=== PATIENT | female | born 1990 | race Two or more races ===

== ENCOUNTER 2021-01-18 16:05 | Emergency (ER) | payer SELFPAY ==
[~2021-01-18] VITALS: Ht 180.3 cm; Wt 118.1 kg
[2021-01-18] MEDS ORDERED: FAMOTIDINE 20 MG/2 ML VIAL IVP ONE (16:15)
[2021-01-18] MEDS ORDERED: METH4TAB2 PO (16:44)
[2021-01-18] MEDS ORDERED: DIPH25TA24 PO (16:44)
[2021-01-18] MEDS ORDERED: EPIPEN0.3 MG/0.3 IM (16:44)
[2021-01-18] MEDS ORDERED: DEXAMETHASONE SOD PHOS 20 MG/5 ML VIAL. IV ONE (16:45)
--- NOTE | 2021-01-18 16:45 | PHYS DOC ---
Past Medical History Additional Past Medical Histor: VERTIGO Past Surgical History: Cholecystectomy, Other Additional Past Surgical Histo: BACK Smoking Status: Never Smoker Alcohol Use: None General Adult EDM: Chief Complaint: ALLERGIC REACTION HPI: HPI: 30-year-old female past medical history of vertigo, migraine headaches, hypertension and obesity, presents to the ED brought in by EMS with her mother, (patient consents to his/her/their knowledge and involvement in pts' medical care), with complaints of coughing, posttussive emesis, feeling as if her throat was closing and difficulties breathing taking a deep breath, that started after accidentally eating green onions at a steak house just prior to ED arrival. States she knows she is allergic to green onions and penicillin/has been tested for allergies. Has had multiple emergency department visits for similar reactions, treated with epinephrine. Has never been hospitalized, no history of angioedema or intubation (does take lisinopril for HTN). States her last reaction was 3 to 4 years ago. Per EMS was given 1 IM epinephrine and 50 mg of IV Benadryl. Last menstrual period was November 26. Denies any alcohol, illicit drug use or cigarette use. Review of Systems: Review of Systems: Constitutional: Denies fever or chills. [] Eyes: Denies change in visual acuity. [] HENT: Denies nasal congestion or sore throat or drooling or speech changes Respiratory: Denies hemoptysis or increased work of breathing Cardiovascular: Denies chest pain or edema. [] GI: Denies abdominal pain, nausea, vomiting, bloody stools or diarrhea. [] : Denies dysuria or vaginal bleeding Musculoskeletal: Denies back pain or joint pain. [] Integument: Denies rash or diaphoresis Neurologic: Denies headache, focal weakness or sensory changes. [] Endocrine: Denies polyuria or polydipsia. [] Lymphatic: Denies swollen glands. [] Psychiatric: Denies depression or anxiety. [] Heart Score: C/O Chest Pain: No Risk Factors: Risk Factors: DM, Current or recent (<one month) smoker, HTN, HLP, family history of CAD, obesity. Risk Scores: Score 0 - 3: 2.5% MACE over next 6 weeks - Discharge Home Score 4 - 6: 20.3% MACE over next 6 weeks - Admit for Clinical Observation Score 7 - 10: 72.7% MACE over next 6 weeks - Early Invasive Strategies Current Medications: Current Medications Medications (Trade) Dose Ordered Sig/Pretty Start Time Stop Time Status Last Admin Dose Admin Famotidine (Pepcid Vial) 20 mg 1X ONCE 01/18/21 16:15 01/18/21 16:17 DC 01/18/21 16:25 20 MG Allergies: Allergies: Allergies Coded Allergies Type Severity Reaction Last Updated Verified Penicillins Allergy Unknown UNKNOWN 01/18/21 Yes Uncoded Allergies Type Severity Reaction Last Updated Verified ONIONS Allergy Unknown UNKNOWN 01/18/21 Physical Exam: PE: Constitutional: Well developed, well nourished, no acute distress, non-toxic appearance. HENT: Normocephalic, atraumatic, Mallampati 3, no oropharyngeal edema-patient is pain, no angioedema Eyes: EOMI, conjunctiva normal, no discharge. Neck: Normal range of motion, supple, Cardiovascular: S1/2 present, regular rhythm Lungs & Thorax: Speaking in full sentences, bilateral equal chest rise, no tachypnea or increased work of breathing, clear speech with no drooling, controlling airway and oral secretions Abdomen: soft, no tenderness, Skin: Warm, dry, no erythema, no rash, no urticaria Extremities: No tenderness, no cyanosis, Neurologic: Alert and oriented X 3, normal motor function, normal sensory function, no focal deficits noted. [] Psychologic: Affect normal, judgement normal, mood normal. [] Current Patient Data: Vital Signs: Vital Signs Date Time Temp Pulse Resp B/P (MAP) Pulse Ox O2 Delivery O2 Flow Rate FiO2 01/18/21 16:05 98.5 103 20 200/93 (128) 99 Room Air 98.5 EKG: EKG: [] Radiology/Procedures: Radiology/Procedures: [] Course & Med Decision Making: Course & Med Decision Making Pertinent Labs and Imaging studies reviewed. (See chart for details) Concern for acute allergic reaction treated in the field with epinephrine and Benadryl. Patient treated with dexamethasone and Pepcid emergency department. Patient with no visible urticaria or angioedema. Patient was observed in the emergency department for recurrence of symptoms. Patient remained hemodynamically stable with no allergic reaction exacerbation. Will discharge home with epinephrine, steroids and Benadryl. Will discharge home with strict ED return precautions were given for difficulties breathing, speech changes, inability could not control her secretions, head or neck swelling or rash. Encouraged urgent outpatient follow-up with PMD and Allergy and Immunology. Life-threatening processes were considered but are low suspicion at this time, given history, physical exam and ED workup. Pt was educated on all prescription medications and adverse effects. All patient's questions were answered and pt was stable at time of discharge. Life/limb-threatening differential includes but is not limited to, anaphylaxis, angioedema, shock, contrast induced allergic reaction, carcinoid syndrome, head/neck infection/sepsis, asthma exacerbation, or airway emergency. I have spoken with the patient and/or caregivers. I explained the patient's condition, diagnoses and treatment plan based on the information available to me at this time. I have answered the patient and/or caregiver's questions and addressed any concerns. The patient and/or caregivers have a good understanding of patient's diagnosis, condition and treatment plan as can be expected at this point. Vital signs have been stable. Patient's condition is stable and appropriate for discharge from the emergency department. Patient will pursue further outpatient evaluation with primary care physician or other designated or consulting physician as outlined in the discharge instructions. The patient and/or caregivers are agreeable to this plan of care and follow-up instructions have been explained in detail. The patient and/or caregivers have received these instructions in written form and have expressed an understanding of the discharge instructions. The patient and/or caregivers are aware that any significant change of condition or worsening of symptoms should prompt immediate return to this or the closest emergency department or call to 1[facility]inf[facility] Obrien Disclaimer: Micah Disclaimer: This electronic medical record was generated, in whole or in part, using a voice recognition dictation system. Departure Departure Impression: Primary Impression: Food allergy Disposition: 01 HOME / SELF CARE / HOMELESS Condition: STABLE Referrals: JIM SERNA III DO Follow-up with your primary care physician in 24 to 48 hours OR FOLLOW UP WITH FAMILY MEDICINE: [address], [address] [place] [address] Patient Instructions: Food Allergy and Anaphylaxis Additional Instructions: [facility] Call for appointment [phone] [facility] on the [address] (Address for directions and navigation systems: [address] [place] [address]) EMERGENCY DEPARTMENT GENERAL DISCHARGE INSTRUCTIONS Thank you for coming to [facility] Emergency Department (ED) today and trusting us with you care. We trust that you had a positive experience in our Emergency Department. If you wish to speak to the department management, you may call the Director at [phone]. YOUR FOLLOW UP INSTRUCTIONS ARE FOLLOWS: 1. Do you have a private Doctor? If you do not have a private doctor, please ask for a resource list of physicians or clinics that may be able to assist you with follow up care. 2. The Emergency Physicain has interpreted your x-rays. The X-Ray specialist will also review them. If there is a change in the findings, you will be notified in 48 hours when at all possible. 3. A lab test or culture has been done, your results will be reviewed and you will be notified if you need a change in treatment. ADDITIONAL INSTRUCTIONS AND INFORMATION: 1. Your care today has been supervised by a physician who is specially trained in emergency care. Many problems require more than one evaluation for a complete diagnosis and treatment. We recommend that you schedule your follow up appointment as yaneli mmended to ensure complete treatment of you illness or injury. If you are unable to obtain follow up care and continue to have a problem, or if your condition worsens, we recommend that you return to the ED. 2. We are not able to safely determine your condition over the phone nor are we able to give sound medical advice over the phone. For these safety reasons, if you call for medical advice we will ask you to come to the ED for further evaluation. 3. If you have any questions regarding these discharge instructions please call the ED at [phone]. SAFETY INFORMATION: In the interest of safety, wellness, and injury prevention; we encourage you to wear your sealbelt, if you smoke; quite smoking, and we encourage family to use a protective helmet for bicycling and other sporting events that present an increased risk for head injury. IF YOUR SYMPTOMS WORSEN OR NEW SYMPTOMS DEVELOP, OR YOU HAVE CONCERNS ABOUT YOUR CONDITION; OR IF YOUR CONDITION WORSENS WHILE YOU ARE WAITING FOR YOUR FOLLOW UP APPOINTMENT; EITHER CONTACT YOUR PRIMARY CARE DOCTOR, THE PHYSICIAN WHOSE NAME AND NUMBER YOU WERE GIVEN, OR RETURN TO THE ED IMMEDIATELY. Scripts Epinephrine (Epipen) 0.3 Mg/0.3 Ml Auto.injct 0.3 MG IM ONCE PRN for SHORTNESS OF BREATH for 1 Day, #1 SYR 1 Refill Use for facial/tongue swelling, shortness of breath, difficulties breathing Prov: WILLIAM PEÑA DO 01/18/21 Diphenhydramine Hcl (DIPHENHYDRAMINE HCL) 25 Mg Tablet 1 TAB PO Q6-8HRS PRN for ITCHING MDD 100mg for 30 Days, #30 TAB 0 Refills Prov: WILLIAM PEÑA DO 01/18/21 Methylprednisolone (MEDROL) 4 Mg Tab.ds.pk 1 PKG PO UD for inflammation, #1 PKG Prov: WILLIAM PEÑA DO 01/18/21 WILLIAM PEÑA DO Jan 18, 2021 16:45
[2021-01-18 17:20] VITALS: BP 151/86
== END 2021-01-18 17:49 | disposition home or self-care (01) ==
LOC: ER 16:05
DX: T78.1XXA Other adverse food reactions, not elsewhere classified, initial encounter (principal); R05.9 Cough, unspecified; R11.10 Vomiting, unspecified; R06.00 Dyspnea, unspecified; G43.909 Migraine, unspecified, not intractable, without status migrainosus; I10 Essential (primary) hypertension; Z88.0 Allergy status to penicillin; Z91.018 Allergy to other foods; X58.XXXA Exposure to other specified factors, initial encounter
CPT/HCPCS: 96374; 96375; 99284; J1100; J3490